=== PATIENT | female | born 1930 | race Caucasian/White ===

== ENCOUNTER 2016-06-25 11:25 | Inpatient (IN) | payer MEDICARE, BC ==
[~2016-06-25] VITALS: Ht 167.6 cm; Wt 70.3 kg
--- NOTE | ~2016-06-25 | O ---
[place], [place] OPERATIVE NOTE NAME: PINKY MACKENZIE UNIT #: [id number] ROOM: 511 DOCTOR: DAVINA SNOWDEN MD BIRTHDATE: [birth year] DOS: 06/29/2016 GASTROENDOSCOPIC REPORT HISTORY OF PRESENT ILLNESS: An 86-year-old patient who presented with chief complaint of jaundice, abdominal pain, undergoing investigation. CA 19-9 was elevated 260, about. PAST MEDICAL HISTORY: Abnormal LFTs, jaundice, hypothyroidism, hypertension. PAST SURGICAL HISTORY: Left shoulder, right shoulder, and bilateral hip. SOCIAL HISTORY: Nonsmoker, nonalcohol consumer. FAMILY HISTORY: Noncontributory. ALLERGIES: No known medication. MEDICATIONS: List has been reviewed. PROCEDURE: Today's procedure part of investigation is ERCP plus precut papillotomy. PREMEDICATION: Versed and Diprivan. SCOPE: Olympus side-viewing duodenoscope. REPORT: After putting the patient in the left lateral position and after application of lubricant to the scope, the scope was introduced; thereafter, under direct visualization, advanced through the length of the esophagus without difficulty. Gastric pouch was entered ____ was defined. Ampulla is not yielding patency precut papillotomy with needle knife was undertaken still the only duct can be opacified is pancreatic duct. I did not want to blindly cut further. After multiple attempts patient extubated, tolerated the procedure well. IMPRESSION: Deep jaundice, suspected pancreatic CA. Elevation of the bilirubin and liver function tests, hypothyroidism, hypertension. PLAN AND DISCUSSION: I will organise the transfer to ____ [facility] and endoscopic ultrasound and further extension of papillotomy and stenting as may necessary and clinical ____. [place], [place] OPERATIVE NOTE NAME: PINKY MACKENZIE UNIT #: [id number] ROOM: 511 DOCTOR: DAVINA SNOWDEN MD BIRTHDATE: [birth year] DAVINA SNOWDEN MD CM:OPRECORD:OPERATIVE NOTE [id number] DAVINA SNOWDEN MD 06/29/16 1530 interface
[~2016-06-25 11:25] MED LIST: ASPIRIN81 M1 PO; BACTRIM DS 8001 TA1 PO; BACTRIM DS 8001 TAB PO; HYDR25T PO; KEFLEX500 M1 PO; KEFLEX500 MG PO; MULTIVITAMIN FO1 CAP PO; SYNTHROID0.112 MG PO; VITAMIN B1100 MCG/ML IM; VITAMIN D1000 IU PO; ZESTRIL,PRINIVIL5 MG PO
[2016-06-25 12:22] VITALS: BP 121/53
[2016-06-25 12:48] LABS: BASO % 0.6 % (0.0-1.0); EOS # 0.1 10*3/uL (0.0-0.4); EOS % 1.7 % (1.0-4.0); HEMATOCRIT 38.7 % (37.0-47.0); HEMOGLOBIN 13.1 g/dl (12.0-16.0); LYMPH # 1.2 10*3/uL (1.3-4.4); LYMPH % 17.3 % (27.0-41.0); MEAN CELL VOLUME 93.5 fl (81.0-99.0); MEAN CORPUSCULAR HGB 31.6 pg (27.0-31.0); MEAN CORPUSCULAR HGB CONC 33.9 g/dl (33.0-37.0); MONO # 0.5 10*3/uL (0.1-1.0); NEUT # 4.8 10*3/uL (2.3-7.9); NEUT % 72.2 % (47.0-73.0); PLATELET COUNT AUTOMATED 252 10*3/uL (130-400); RED BLOOD COUNT 4.14 10*6/uL (4.10-5.10); RED CELL DISTRI WIDTH 13.4 % (0-14.5); WHITE BLOOD COUNT 6.6 10*3/uL (4.8-10.8)
[2016-06-25 12:58] LABS: PROTHROMBIN TIME 10.7 SECONDS (9.0-12.4)
[2016-06-25 13:04] LABS: ALBUMIN 3.7 gm/dl (3.1-4.5); BILIRUBIN, TOTAL 6.9 mg/dl (0.2-1.0); C-REACTIVE PROTEIN 0.48 MG/DL (0-0.3); CKMB 1.2 ng/ml (0.5-3.6); POTASSIUM 3.7 mmol/L (3.5-5.1); TOTAL PROTEIN 7.6 gm/dL (6.4-8.2)
[2016-06-25 13:06] LABS: TROPONIN I 0.11 ng/ml (<0.045)
[2016-06-25 16:00] VITALS: BP 138/92
[2016-06-25 18:25] LABS: BILIRUBIN 2+ (NEGATIVE); BLOOD 1+ (NEGATIVE); CLARITY CLOUDY (CLEAR); COLOR YELLOW (YELLOW); GLUCOSE NEGATIVE (NEGATIVE); KETONE NEGATIVE (NEGATIVE); LEUKO ESTERASE 3+ (NEGATIVE); NITRITE POSITIVE (NEGATIVE); PH 5.5 (5.0-9.0); PROTEIN NEGATIVE (NEGATIVE)
[2016-06-25] MEDS ORDERED: VITAMIN B121000 MC1 PO (18:26)
[2016-06-25] MEDS ORDERED: VITAMIN D32000 UNI1 PO (18:27)
[2016-06-25] MEDS ORDERED: SYNTHROID,LEV112 MCG PO (18:29)
[2016-06-25 19:21] LABS: BACTERIA 3+; URINE REFLEX COMMENT YES (NO); WBC TNTC wbc/hpf (0-5)
[2016-06-25 20:00] VITALS: BP 129/53
[2016-06-26] VITALS: BP 100/56
[2016-06-26 05:47] LABS: BASO % 0.5 % (0.0-1.0); EOS # 0.2 10*3/uL (0.0-0.4); EOS % 2.7 % (1.0-4.0); HEMATOCRIT 39.1 % (37.0-47.0); LYMPH # 2.2 10*3/uL (1.3-4.4); LYMPH % 28.4 % (27.0-41.0); MEAN CELL VOLUME 93.8 fl (81.0-99.0); MEAN CORPUSCULAR HGB 31.2 pg (27.0-31.0); MEAN CORPUSCULAR HGB CONC 33.2 g/dl (33.0-37.0); MEAN PLATELET VOLUME 11.1 fl (9.6-12.3); MONO # 0.7 10*3/uL (0.1-1.0); MONO % 8.9 % (3.0-9.0); NEUT # 4.7 10*3/uL (2.3-7.9); PLATELET COUNT AUTOMATED 257 10*3/uL (130-400); RED BLOOD COUNT 4.17 10*6/uL (4.10-5.10); RED CELL DISTRI WIDTH 13.7 % (0-14.5); WHITE BLOOD COUNT 7.9 10*3/uL (4.8-10.8)
[2016-06-26 06:02] LABS: HEMOGLOBIN A1c 7.2 % (4.8-5.6)
[2016-06-26 06:28] LABS: ALBUMIN 3.5 gm/dl (3.1-4.5); ALKALINE PHOSPHATASE 366 U/L (45-117); BILIRUBIN, TOTAL 8.1 mg/dl (0.2-1.0); BUN 11 mg/dl (7-24); CARBON DIOXIDE 29 mmol/L (21-32); CHLORIDE 99 mmol/L (98-107); CHOLESTEROL 220 mg/dL (<200); EST GLOM FILT AFRICAN AMERICAN > 60 ml/min; FREE T4 1.61 ng/dl (0.76-1.46); GLUCOSE 161 mg/dL (65-99); HDL CHOLESTEROL 33 mg/dl (40-60); LDL CHOLESTEROL 142 mg/dL (9-159); POTASSIUM 2.8 mmol/L (3.5-5.1); SGOT/AST 423 IU/L (3-35); SGPT/ALT 414 U/L (12-78); SODIUM 139 mmol/L (136-145); TOTAL PROTEIN 7.3 gm/dL (6.4-8.2); TRIGLYCERIDES 227 mg/dl (<150); VLDL CHOLESTEROL 45 mg/dL (6-40)
[2016-06-26 06:33] LABS: THYROID STIM HORMONE (HS) 0.524 uIU/ml (0.358-4.75)
[2016-06-26 08:00] VITALS: BP 120/56
[2016-06-26 12:00] VITALS: BP 120/65
[2016-06-26 16:00] VITALS: BP 144/62
[2016-06-26 20:00] VITALS: BP 161/76
[2016-06-26 21:00] VITALS: BP 138/64
[2016-06-27] VITALS: BP 102/40; BP 108/35
[2016-06-27 01:00] VITALS: BP 110/50
[2016-06-27 07:17] LABS: ALBUMIN 2.8 gm/dl (3.1-4.5); ALKALINE PHOSPHATASE 309 U/L (45-117); BILIRUBIN, TOTAL 5.5 mg/dl (0.2-1.0); BUN 9 mg/dl (7-24); CARBON DIOXIDE 27 mmol/L (21-32); CHLORIDE 104 mmol/L (98-107); EST GLOM FILT AFRICAN AMERICAN > 60 ml/min; GLUCOSE 140 mg/dL (65-99); SGOT/AST 289 IU/L (3-35); SGPT/ALT 284 U/L (12-78)
[2016-06-27 07:28] LABS: SODIUM 138 mmol/L (136-145)
[2016-06-27 08:00] VITALS: BP 124/64
[2016-06-27 12:00] VITALS: BP 139/63
[2016-06-27 16:00] VITALS: BP 150/65
[2016-06-27 20:00] VITALS: BP 170/66
[2016-06-28] VITALS: BP 112/50
[2016-06-28 06:38] LABS: ALBUMIN 2.9 gm/dl (3.1-4.5); ALKALINE PHOSPHATASE 358 U/L (45-117); BUN 10 mg/dl (7-24); CARBON DIOXIDE 28 mmol/L (21-32); CHLORIDE 102 mmol/L (98-107); EST GLOM FILT AFRICAN AMERICAN > 60 ml/min; GLUCOSE 148 mg/dL (65-99); POTASSIUM 3.8 mmol/L (3.5-5.1); SGOT/AST 269 IU/L (3-35); SGPT/ALT 289 U/L (12-78); SODIUM 138 mmol/L (136-145); TOTAL PROTEIN 6.3 gm/dL (6.4-8.2)
[2016-06-28 07:02] LABS: COL/EPI 147 SECONDS (86-157)
[2016-06-28 08:00] VITALS: BP 136/66
[2016-06-28 12:00] VITALS: BP 143/51
[2016-06-28 16:00] VITALS: BP 126/57
[2016-06-28 20:00] VITALS: BP 146/55
[2016-06-29] VITALS (10 sets, daily range): BP systolic 122–160; BP diastolic 50–71
[2016-06-30] VITALS: BP 112/50
[2016-06-30 06:32] LABS: BASO % 0.6 % (0.0-1.0); EOS # 0.2 10*3/uL (0.0-0.4); EOS % 3.6 % (1.0-4.0); HEMATOCRIT 30.6 % (37.0-47.0); HEMOGLOBIN 10.2 g/dl (12.0-16.0); LYMPH # 0.9 10*3/uL (1.3-4.4); LYMPH % 17.7 % (27.0-41.0); MEAN CELL VOLUME 95.3 fl (81.0-99.0); MEAN CORPUSCULAR HGB 31.8 pg (27.0-31.0); MEAN CORPUSCULAR HGB CONC 33.3 g/dl (33.0-37.0); MEAN PLATELET VOLUME 11.6 fl (9.6-12.3); MONO # 0.6 10*3/uL (0.1-1.0); MONO % 10.8 % (3.0-9.0); NEUT # 3.6 10*3/uL (2.3-7.9); NEUT % 67.1 % (47.0-73.0); PLATELET COUNT AUTOMATED 155 10*3/uL (130-400); RED BLOOD COUNT 3.21 10*6/uL (4.10-5.10); RED CELL DISTRI WIDTH 15.2 % (0-14.5); WHITE BLOOD COUNT 5.3 10*3/uL (4.8-10.8)
[2016-06-30 08:00] VITALS: BP 144/88
[2016-06-30 12:00] VITALS: BP 132/78
[2016-06-30 16:00] VITALS: BP 151/55
[2016-06-30 20:00] VITALS: BP 157/62
== END 2016-06-30 21:30 | disposition short-term general hospital (02) | DRG 435 ==
LOC: ED 11:25 → 5E 13:54 → EDHOLD 13:54 → 5E 15:28
PROVIDERS: Emergency Medicine; Internal Medicine; Internal Medicine Hospice and Palliative Medicine
PROC: 0FJD8ZZ Inspection of Pancreatic Duct, Via Natural or Artificial Opening Endoscopic (ICD-10-PCS; principal; 2016-06-29)
DX: C25.9 Malignant neoplasm of pancreas, unspecified (principal); G93.41 Metabolic encephalopathy; N17.0 Acute kidney failure with tubular necrosis; N39.0 Urinary tract infection, site not specified; E80.6 Other disorders of bilirubin metabolism; R73.9 Hyperglycemia, unspecified; I10 Essential (primary) hypertension; E03.9 Hypothyroidism, unspecified; E55.9 Vitamin D deficiency, unspecified; E53.8 Deficiency of other specified B group vitamins; E87.6 Hypokalemia; I48.0 Paroxysmal atrial fibrillation; E78.5 Hyperlipidemia, unspecified; Z96.643 Presence of artificial hip joint, bilateral; Z96.611 Presence of right artificial shoulder joint; Z96.652 Presence of left artificial knee joint; Z79.82 Long term (current) use of aspirin; Z79.899 Other long term (current) drug therapy; Z82.49 Family history of ischemic heart disease and other diseases of the circulatory system; Z80.0 Family history of malignant neoplasm of digestive organs

== ENCOUNTER 2017-09-06 01:37 | Emergency (ER) | payer MEDICARE, BC ==
[~2017-09-06] VITALS: Ht 162.5 cm; Wt 77.1 kg
[~2017-09-06 01:37] MED LIST changes: +SYNTHROID,LEV112 MCG PO; +VITAMIN B121000 MC1 PO; +VITAMIN D32000 UNI1 PO
[2017-09-06] MEDS ORDERED: LORAZEPAM0.5 MG PO (01:59)
[2017-09-06] MEDS ORDERED: HYOSCYAMINE0.125 M1 PO (01:59)
[2017-09-06] MEDS ORDERED: HYOSCYAMINE0.125 MG PO (02:01)
[2017-09-06] MEDS ORDERED: ATIVAN0.5 MG PO (02:01)
[2017-09-06] MEDS ORDERED: POTASSIUM CHLO10 MEQ PO (02:02)
[2017-09-06] MEDS ORDERED: METFORMIN ER500 MG PO (02:06)
[2017-09-06] MEDS ORDERED: Zestril,Prinivi40 MG PO (02:06)
[2017-09-06] MEDS ORDERED: VITAMIN D32000 UNIT PO (02:06)
[2017-09-06] MEDS ORDERED: MULTIVITAMINS1 EAC5 PO (02:07)
[2017-09-06] MEDS ORDERED: Lopressor25 MG PO (02:07)
[2017-09-06] MEDS ORDERED: SYNTHROID,LEV112 MCG PO (02:07)
[2017-09-06] MEDS ORDERED: LASIX20 MG PO (02:08)
== END 2017-09-06 04:23 | disposition expired ==
LOC: ED 01:37 → EDHOLD 01:53 → ED 04:23
DX: R55 Syncope and collapse (principal); I48.91 Unspecified atrial fibrillation; I10 Essential (primary) hypertension; E03.9 Hypothyroidism, unspecified; Z79.899 Other long term (current) drug therapy